=== PATIENT | male | born 2000 | race Caucasian/White ===

== ENCOUNTER 2025-03-15 11:34 | Outpatient (RCR) | payer MEDICAID, SELFPAY ==
--- NOTE | 2025-03-16 16:31 | HP.SP.EVAL ---
Visit History Visit Info Date of Eval: 03/15/25 Today is Visit #: 1 Patient's Approved Number of Visits: 30 Insurance Date Limit: 10/11/25 Market Relationship Manager: BROOKLYN Cole Attending Doctor: KENDAL Referring Doctor: KENDAL Reason for Referral: DYSPHAGIA DR TO FAX Medical Diagnosis: Oropharyngeal dysphagia, anxiety, developmental delay Date of Onset of Diagnosis: January 2025 Previous speech therapy: No Other Relevant Medical History/Diagnoses/Surgery: Patient referred to [facility] for a dysphagia evaluation following a choking incident that occurred in January 2025. Patient stated that he choked on a burrito and has had difficulty swallowing as well as with vocal quality since. Patient stated that he has seen slow improvement of his dysphagia over the last few weeks but is concerned about the efficiency of his swallow, if anything is sticking, as well as with change in vocal quality. Patient had shoulder surgery in December 2024 and was concerned that he may have structural damage in the pharynx following the procedure, which he believed could be the cause of the swallowing difficulty. However, this was ruled out by ENT at [facility] in January. Pt is scheduled for an endoscopy in April 2025. Pt's mother reported that she does not see any changes with his vocal quality and he has diagnosed anxiety, which she believes may be contributing to his swallowing concerns. Diagnosis Diagnosis: Oropharyngeal dysphagia Pain Is pain an issue with your current prescribed condition?: Yes Personal Preferred language: Estonian Subjective Dysphagia Symptoms Reported Symptoms/Problems with: Coughing, Choking, Difficulty Swallowing Solids, Difficulty Swallowing Pills, Pain on Swallowing and Food gets stuck Current Diet Solids Current Diet: Soft Objective Dysphagia Administered by Administered by: HAIR SALON MANAGER Thin Liquids Administred via: Cup and Straw Oral Transit: WNL Bolus clearance: fully cleared Gagging: No Cough: none observed/unable to assess Pharyngeal phase: immediate laryngeal elevation Patient Report: Patient reported no difficulty with this consistency. Moderately Thick (Honey) Liquids Administered via: Spoon Oral Preparation: WNL Oral Transit: WNL Gagging: No Cough: none observed/unable to assess Pharyngeal phase: immediate laryngeal elevation Patient Report: Patient reported no difficulty with this consistency. Soft & Bite sized (Mechanical) Administered via: Spoon Oral Preparation: WNL Oral Transit: WNL Bolus clearance: fully cleared Gagging: No Cough: none observed/unable to assess Pharyngeal phase: immediate laryngeal elevation Patient Report: Patient reported no difficulty with this consistency. Regular Oral Preparation: WNL Oral Transit: WNL Bolus clearance: fully cleared Gagging: No Cough: none observed/unable to assess Pharyngeal phase: immediate laryngeal elevation Patient Report: Patient reported that he felt some sticking in his throat with this consistency, but was able to effectively clear with a cup sip of water. Patient also stated that he feels as though his vocal quality changed after the swallow with this consistency. Impact Impact on Safety & Functioning: No Limitations Recommendations Modified Barium Swallow/Cookie Swallow Recommended: No Swallowing Treatment: Yes Diet Texture Recommendations Solids: Regular (Level 7) Liquids: Thin (Level 0) Safety Saftey Precautions/Swallowing Recommendations (Check all that Apply): Upright Position at Least 30 Minutes After Meals and Small Sips & Bites when Eating Results Swallowing Within Normal Limits: Yes Swallowing Diagnosis: Oropharyngeal Phase Dysphagia (R13.12) Severity: Mild Objective Oral Motor Oral Status Dentition: WNL Labial Impairment: WNL Observation at Rest: WNL Closure: WNL Pucker: WNL Retraction: WNL Alternating Pucker/Retraction: WNL Involuntary Movement noted: No Lingual Impairment: WNL Protrusion: WNL Retraction: WNL Lateralization: WNL Involuntary Movement: No Jaw Impairment: WNL Opening: WNL Closing: WNL Involuntary Movement: No Oral Motor Comments Comments: Patient with no concerns regarding oral motor skills. Reference: Neuro-QoL instrument Radiation Oncology Patient Plan Plan Plan: At this time, it is recommended that patient utilize safe swallowing strategies as well as participate in home exercise program for oropharyngeal strengthening and return for a follow up appointment to assess swallowing and vocal quality in 1 month. Recommendations Treatment Warranted: Yes Treatment Warranted: Dysphagia and Voice Comment: Follow up appt in 1 month Progress Prognosis: Excellent Frequency Frequency: 1x/Week Duration: Indefinite Patient/Family Goal Patient/Family Goal: Patient stated that he wants to be able to eat foods he likes without feeling like anything is getting stuck in his throat or the quality of his voice changing post-swallow. Goals that are Established Determination:: Goals will be added/modified as deemed necessary and appropriate. Therapy will be discontinued when results of re-evaluation indicate therapy is no longer needed or lack of progress has been documented. Goal #1-5 Goal #1: Patient will participate in a re-evaluation of swallowing and vocal quality within 1 month of initial evaluation. Goal #2: Patient will participate in oropharyngeal strengthening exercises through home program. Goal #3: Patient will utilize the following safe swallow strategies during all P.O. intake: small bites/sips, sitting upright, throat clearing when food or pills feel stuck, utilizing head turn and chin tuck when food or pills feel stuck. Education Patient has Indicated that the Following The Patient has indicated that they have no educational or learning abilities that may effect their care.: Yes Patient Instruction Patient Education: Treatment Plan, Goals, Safety Precautions and Home Exercise Program Person Taught: Patient and Family Teaching Method: Discussion Response to teaching: Verbalize Understanding
--- NOTE | 2025-09-18 10:26 | HP.SP.DC ---
ST Discharge Summary Discharged: Discharge: Patient is being discharged from [facility] speech therapy services at this time. Patient attended initial evaluation on 03/15/2025 with concerns of dysphagia following a choking incident in January 2025. Patient participating in 2 sessions following initial evaluation and completing oropharyngeal and oral motor strengthening tasks at home. Patient's mother stating that he was had an ENT appointment scheduled to rule out any structural concerns. Patient did not schedule any visits following 04/21/2025. Thank you for allowing me to participate in the care of this patient.
== END 2025-03-15 19:00 | disposition home or self-care (01) ==
LOC: SP 11:34
PROVIDERS: PCP Nurse Practitioner Family; Referring Provider Nurse Practitioner; Visit Provider Nurse Practitioner
DX: R13.12 Dysphagia, oropharyngeal phase (principal); R09.A2 Foreign body sensation, throat
CPT/HCPCS: 92507; 92610